=== PATIENT | male | born 1995 | race Two or more races ===

== ENCOUNTER 2016-07-23 21:17 | Emergency (ER) | payer OTHER ==
[~2016-07-23] VITALS: Ht 157.5 cm; Wt 64.7 kg
[2016-07-24 00:34] VITALS: BP 134/78
== END 2016-07-24 00:35 | disposition home or self-care (01) ==
LOC: EXP 21:17 → EME 21:17 → EXP 07-24 00:35
DX: S70.01XA Contusion of right hip, initial encounter (principal); S40.811A Abrasion of right upper arm, initial encounter; V19.3XXA Pedal cyclist (driver) (passenger) injured in unspecified nontraffic accident, initial encounter
CPT/HCPCS: 73502; 99281; 99283